=== PATIENT | female | born 2000 | race Caucasian/White ===

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

== ENCOUNTER 2022-05-15 22:15 | Emergency (ER) | payer OTHER | END 2022-05-15 22:47 | disposition left against medical advice (07) | DRG 951 | LOC: ED 22:15 → LWOBS 22:46 | DX: Z53.21 Procedure and treatment not carried out due to patient leaving prior to being seen by health care provider (principal) ==

== ENCOUNTER 2022-09-09 17:36 | Emergency (ER) | payer OTHER ==
[2022-09-09] VITALS (7 sets, daily range): BP systolic 97–121; BP diastolic 63–77
[~2022-09-09] VITALS: Ht 160 cm; Wt 65.0 kg
== END 2022-09-09 19:20 | disposition home or self-care (01) ==
LOC: ED 17:36
DX: J10.1 Influenza due to other identified influenza virus with other respiratory manifestations (principal); Z20.822 Contact with and (suspected) exposure to COVID-19

== ENCOUNTER 2022-09-27 21:44 | Emergency (ER) | payer OTHER ==
[~2022-09-27] VITALS: Ht 160 cm; Wt 63.0 kg
[2022-09-27] MEDS ORDERED: BENADRYL ALLERG25 MG PO (22:43)
[2022-09-27 23:00] VITALS: BP 124/67
== END 2022-09-27 23:07 | disposition home or self-care (01) ==
LOC: ED 21:44
DX: T78.40XA Allergy, unspecified, initial encounter (principal); J45.909 Unspecified asthma, uncomplicated; X58.XXXA Exposure to other specified factors, initial encounter

== ENCOUNTER 2023-06-10 18:51 | Emergency (ER) | payer OTHER ==
[~2023-06-10] VITALS: Ht 160 cm; Wt 63.0 kg
[2023-06-10] VITALS (8 sets, daily range): BP systolic 89–110; BP diastolic 53–82
[~2023-06-10 18:51] MED LIST changes: +BENADRYL ALLERG25 MG PO
== END 2023-06-10 21:22 | disposition home or self-care (01) ==
LOC: ED 18:51
DX: S93.602A Unspecified sprain of left foot, initial encounter (principal); J45.909 Unspecified asthma, uncomplicated; W01.0XXA Fall on same level from slipping, tripping and stumbling without subsequent striking against object, initial encounter

== ENCOUNTER 2023-10-20 09:53 | Emergency (ER) | payer OTHER ==
[2023-10-20] VITALS (15 sets, daily range): BP systolic 93–115; BP diastolic 64–78
[~2023-10-20] VITALS: Ht 160 cm; Wt 65.9 kg
[2023-10-20 11:00] LABS: BASO% 0.1 % (0-3); EOS% 0.4 % (0-8); HEMOGLOBIN 12.2 g/dl (12.0-16.0); IMMATURE GRANULOCYTES 0.1 % (0.0-5.0); LYMPH% 15.8 % (15-41); MEAN CELL VOLUME 86.4 fL CALC (80.0-100.0); MEAN CORPUSCULAR HGB 28.5 pG CALC (26.0-32.0); MONO% 9.3 % (2-13); NEUT# 5.86 thou/uL (2.00-7.15); NEUT% 74.3 % (42-76); RED BLOOD COUNT 4.28 mill/uL (4.20-5.60); RED CELL DISTRI WIDTH 12.4 % (11.5-15.5)
[2023-10-20 11:03] LABS: URINE BILIRUBIN - DIPSTICK Negative (NEGATIVE); URINE BLOOD DIPSTICK Negative (NEGATIVE); URINE GLUCOSE - DIPSTICK Negative (NEGATIVE); URINE KETONE 15 mg/dL (NEGATIVE); URINE LEUK ESTERASE Trace (NEGATIVE); URINE NITRITE - DIPSTICK Negative (Negative); URINE PROTEIN - DIPSTICK Negative (NEG-TRACE); URINE SPECIFIC GRAVITY 1.025; URINE UROBILINOGEN - DIPSTICK 0.2 E.U./dL (0.2)
[2023-10-20 11:44] LABS: URINE COLOR Yellow
[2023-10-20 12:00] LABS: ALBUMIN 4.6 g/dL (3.2-5.0); ALKALINE PHOSPHATASE 73 u/l (38-126); ANION GAP 17 (6-22 (CALC)); BILIRUBIN, TOTAL 0.7 mg/dL (0.02-1.3); BUN 13 mg/dL (7-17); BUN/CREATININE RATIO 25 (12-20 (CALC)); CARBON DIOXIDE 22 mmol/l (22-30); CHLORIDE 103 mmol/l (95-108); CREATININE 0.5 mg/dL (0.5-1.0); GFR FOR AFR.AMER. > 60 ML/MIN (>=60 (CALC)); GFR OTHER RACES > 60 ML/MIN (>=60 (CALC)); POTASSIUM 4.3 mmol/l (3.5-5.1); SGOT/AST 24 u/l (14-36); SODIUM 138 mmol/l (137-146); TOTAL PROTEIN 7.3 g/dL (6.3-8.2)
[2023-10-20 12:17] LABS: BETA-HCG, QUANT(RESULT NUMBER) 3972 mIU/mL
[2023-10-20] MEDS ORDERED: ONDANSETRON4 MG PO (13:52)
== END 2023-10-20 14:11 | disposition home or self-care (01) ==
LOC: ED 09:53
PROVIDERS: Family Medicine
DX: O26.891 Other specified pregnancy related conditions, first trimester (principal); R10.9 Unspecified abdominal pain; Z3A.01 Less than 8 weeks gestation of pregnancy

== ENCOUNTER 2023-11-18 18:51 | Emergency (ER) | payer OTHER ==
[~2023-11-18] VITALS: Ht 160 cm; Wt 81.4 kg
[~2023-11-18 18:51] MED LIST changes: +ONDANSETRON4 MG PO
[2023-11-18 19:30] VITALS: BP 114/77
[2023-11-18] MEDS ORDERED: PRENATA3 PO (19:34)
[2023-11-18 19:45] LABS: URINE BILIRUBIN - DIPSTICK Negative (NEGATIVE); URINE BLOOD DIPSTICK Negative (NEGATIVE); URINE GLUCOSE - DIPSTICK 100 mg/dL (NEGATIVE); URINE KETONE Negative (NEGATIVE); URINE LEUK ESTERASE Trace (NEGATIVE); URINE NITRITE - DIPSTICK Negative (Negative); URINE PROTEIN - DIPSTICK Negative (NEG-TRACE); URINE SPECIFIC GRAVITY >=1.030; URINE UROBILINOGEN - DIPSTICK 0.2 E.U./dL (0.2)
[2023-11-18 19:48] LABS: URINE COLOR Yellow
[2023-11-18 20:40] LABS: BASO% 0.6 % (0-3); EOS% 1.1 % (0-8); HEMATOCRIT 36.9 % (37.0-47.0); IMMATURE GRANULOCYTES 0.1 % (0.0-5.0); LYMPH% 18.7 % (15-41); MEAN CELL VOLUME 88.3 fL CALC (80.0-100.0); MEAN CORPUSCULAR HGB 28.7 pG CALC (26.0-32.0); MEAN CORPUSCULAR HGB CONC 32.5 g/dL CAL (32.0-36.0); NEUT# 6.48 thou/uL (2.00-7.15); NEUT% 73.5 % (42-76); RED BLOOD COUNT 4.18 mill/uL (4.20-5.60)
[2023-11-18 20:57] LABS: ALBUMIN 4.4 g/dL (3.2-5.0); ALKALINE PHOSPHATASE 60 u/l (38-126); ANION GAP 10 (6-22 (CALC)); BUN 11 mg/dL (7-17); BUN/CREATININE RATIO 21 (12-20 (CALC)); CARBON DIOXIDE 26 mmol/l (22-30); CHLORIDE 104 mmol/l (95-108); CREATININE 0.5 mg/dL (0.5-1.0); GFR FOR AFR.AMER. > 60 ML/MIN (>=60 (CALC)); GFR OTHER RACES > 60 ML/MIN (>=60 (CALC)); POTASSIUM 3.6 mmol/l (3.5-5.1); SGOT/AST 21 u/l (14-36); SODIUM 137 mmol/l (137-146); TOTAL PROTEIN 7.2 g/dL (6.3-8.2)
[2023-11-18 20:58] LABS: BILIRUBIN, TOTAL 0.3 mg/dL (0.02-1.3)
[2023-11-18 21:00] VITALS: BP 134/85
[2023-11-18] MEDS ORDERED: PYRIDIUM200 MG PO (21:43)
[2023-11-18 21:48] VITALS: BP 134/85
== END 2023-11-18 21:53 | disposition home or self-care (01) ==
LOC: ED 18:51
PROVIDERS: Nurse Practitioner
DX: O99.891 Other specified diseases and conditions complicating pregnancy (principal); R30.0 Dysuria; Z3A.00 Weeks of gestation of pregnancy not specified

== ENCOUNTER 2024-09-22 02:35 | Emergency (ER) | payer OTHER ==
[~2024-09-22] VITALS: Ht 160 cm; Wt 68.0 kg
[~2024-09-22 02:35] MED LIST changes: +PRENATA3 PO; +PYRIDIUM200 MG PO
[2024-09-22 03:38] VITALS: BP 109/72
[2024-09-22 04:00] VITALS: BP 104/69
[2024-09-22 04:09] LABS: BASO% 0.2 % (0-3); EOS% 1.1 % (0-8); HEMATOCRIT 38.3 % (37.0-47.0); HEMOGLOBIN 12.4 g/dl (12.0-16.0); IMMATURE GRANULOCYTES 0.8 % (0.0-5.0); LYMPH% 23.8 % (15-41); MEAN CORPUSCULAR HGB 28.8 pG CALC (26.0-32.0); MEAN CORPUSCULAR HGB CONC 32.4 g/dL CAL (32.0-36.0); MONO% 7.4 % (2-13); NEUT# 5.68 thou/uL (2.00-7.15); NEUT% 66.7 % (42-76); RED BLOOD COUNT 4.31 mill/uL (4.20-5.60); RED CELL DISTRI WIDTH 13.3 % (11.5-15.5)
[2024-09-22 04:10] LABS: MEAN CELL VOLUME 88.9 fL CALC (80.0-100.0)
[2024-09-22] MEDS ORDERED: KETOROLAC TROMETHAMINE 30 MG/ML SDV IV ONE (04:15)
[2024-09-22] MEDS ORDERED: ACETAMINOPHEN 500 MG TAB PO ONE (04:15)
[2024-09-22] MEDS ORDERED: DICYCLOMINE HCL 10 MG/CAP PO ONE (04:15)
[2024-09-22 04:19] LABS: ALKALINE PHOSPHATASE 63 u/l (38-126); ANION GAP 15 (6-22 (CALC)); BUN 17 mg/dL (7-17); BUN/CREATININE RATIO 26 (12-20 (CALC)); CARBON DIOXIDE 23 mmol/l (22-30); CHLORIDE 106 mmol/l (95-108); CREATININE 0.6 mg/dL (0.5-1.0); ESTIMATED GFR 129 ML/MIN (>=90 (CALC)); LIPASE 78 u/l (23-300); POTASSIUM 3.8 mmol/l (3.5-5.1); SGOT/AST 25 u/l (14-36); SODIUM 140 mmol/l (137-146); TOTAL PROTEIN 7.6 g/dL (6.3-8.2)
[2024-09-22 04:22] LABS: URINE BILIRUBIN - DIPSTICK Negative (NEGATIVE); URINE BLOOD DIPSTICK Moderate (NEGATIVE); URINE GLUCOSE - DIPSTICK Negative (NEGATIVE); URINE LEUK ESTERASE Negative (NEGATIVE); URINE NITRITE - DIPSTICK Negative (Negative); URINE PH 6.5 (4.5-8.0); URINE PROTEIN - DIPSTICK Negative (NEG-TRACE); URINE SPECIFIC GRAVITY 1.025; URINE UROBILINOGEN - DIPSTICK 0.2 E.U./dL (0.2)
[2024-09-22 04:24] LABS: ALBUMIN 4.6 g/dL (3.2-5.0); BILIRUBIN, TOTAL 0.7 mg/dL (0.02-1.3)
[2024-09-22 04:30] VITALS: BP 92/45
[2024-09-22 04:31] LABS: URINE COLOR Yellow; URINE KETONE Negative (NEGATIVE)
[2024-09-22 04:32] LABS: URINE EPITHELIAL CELLS MODERATE EPI/hpf (0-FEW)
[2024-09-22 04:33] LABS: URINE BACTERIA MODERATE hpf
[2024-09-22 04:36] LABS: BETA-HCG, QUANT(RESULT NUMBER) <2 mIU/mL
[2024-09-22 06:37] VITALS: BP 99/54
[2024-09-22 06:53] VITALS: BP 99/54
[2024-09-24] MEDS ORDERED: KEFLEX500 MG PO (10:32)
== END 2024-09-22 06:53 | disposition home or self-care (01) ==
LOC: ED 02:35
PROVIDERS: Internal Medicine
DX: R10.9 Unspecified abdominal pain (principal); R82.71 Bacteriuria; J45.909 Unspecified asthma, uncomplicated
CPT/HCPCS: Q9967

== ENCOUNTER 2025-01-27 16:57 | Emergency (ER) | payer OTHER ==
[~2025-01-27] VITALS: Ht 160 cm; Wt 72.0 kg
[~2025-01-27 16:57] MED LIST changes: +KEFLEX500 MG PO
[2025-01-27 17:20] VITALS: BP 128/74
== END 2025-01-27 17:26 | disposition home or self-care (01) ==
LOC: ED 16:57
DX: B85.0 Pediculosis due to Pediculus humanus capitis (principal); J45.909 Unspecified asthma, uncomplicated